=== PATIENT | female | born 1955 | race Hispanic/Latino ===

== ENCOUNTER 2017-06-23 05:59 | Emergency (ER) | payer MEDICARE ==
[2017-06-23] MEDS ORDERED: Ondansetron HCl/PF 4 MG/2 ML Vial ONE (06:34)
[2017-06-23 06:46] LABS: Hemoglobin 12.9 g/dL (12.0-16.0); Mean Corpuscular HGB CONC 34.7 g/dL (32.0-36.0); Mean Corpuscular Hemoglobin 31.2 pg (27.0-31.0); Mean Corpuscular Volume 89.9 fl (81.0-99.0); Mean Platelet Volume 8.2 fL (7.4-10.4); Platelet Count 214 thou/uL (130-400); RBC Distribution Width 14.2 % (11.5-14.5); Red Blood Cell (RBC) Count 4.13 mill/uL (4.20-5.40); White Blood Cell (WBC) Count 6.1 thou/uL (4.8-10.8)
[2017-06-23 07:06] LABS: ALT (SGPT) 28 U/L (8-55); AST (SGOT) 29 U/L (5-34); Albumin 4.1 g/dL (3.4-4.8); Alkaline Phosphatase 86 U/L (40-150); Anion Gap 12 mmol/L (10-20); BUN (Urea Nitrogen) 10 mg/dL (9.8-20.1); Bilirubin, Total 0.4 mg/dL (0.2-1.2); Calc. Creatinine Clearance 0 mL/min (70-130); Calcium 9.3 mg/dL (7.8-10.44); Carbon Dioxide 19 mmol/L (23-31); Chloride 111 mmol/L (98-107); Estimated GFR-MDRD 74; Glucose 120 mg/dL (80-115); Protein, Total 8.1 g/dL (6.0-8.3); Sodium 138 mmol/L (136-145)
[2017-06-23 07:08] LABS: Band 7 % (5-11); Eosinophils 1 % (0-10); Lymphocytes 52 % (21-51); MDiff Complete? YES; Monocytes 4 % (0-10); Neutrophil 34 % (42-75); RBC Morphology Normal; Reactive Lymphocytes 1 % (0-10)
[2017-06-23 07:42] LABS: Bilirubin Small (Negative); Blood, Urine Trace (Negative); Clarity CLOUDY (Clear); Glucose, Urine (Dipstick) Negative (Negative); Leukocyte Negative (Negative); Nitrite Negative (Negative); Protein, Urine (Dipstick) 100 mg/dL (Neg-Trace); Specific Gravity, Urine 1.025 (1.002-1.036); pH, Urine 5.5 (5.0-9.0)
[2017-06-23 07:45] LABS: Bacteria/HPF 1+ HPF (None Seen); Pathc Cast-AUWi Flag 2.16 (0-2.49); WBC/HPF 0-3 HPF (0-3)
[2017-06-23] MEDS ORDERED: Famotidine/PF 20 mg/2ml Vial ONE (07:50)
[2017-06-23 07:54] LABS: RBC/HPF 0-3 HPF (0-3)
[2017-06-23 07:55] LABS: Crystals/HPF 2+ CA OXALATE HPF (Negative); Hyaline Casts/LPF 0-3 HYALINE CAST LPF (0-3 Hyaline)
== END 2017-06-23 08:22 | disposition home or self-care (01) ==
LOC: ERS 05:59
DX: R11.2 Nausea with vomiting, unspecified (principal); R19.7 Diarrhea, unspecified; R22.2 Localized swelling, mass and lump, trunk; F41.9 Anxiety disorder, unspecified; F32.9 Major depressive disorder, single episode, unspecified; Z79.899 Other long term (current) drug therapy
CPT/HCPCS: 36415; 80053; 81003; 81015; 83605; 83690; 85025; 93005; 96361; 96374; 96375; J2405; S0028

== ENCOUNTER 2017-06-30 08:54 | Outpatient (CLI) | payer MEDICARE | END 2017-06-30 08:55 | disposition home or self-care (01) | LOC: BICRAD 08:54 | PROVIDERS: ATTEND Family Medicine | DX: R11.10 Vomiting, unspecified (principal); R16.0 Hepatomegaly, not elsewhere classified | CPT/HCPCS: 71046; 74018 ==

== ENCOUNTER 2017-07-01 08:06 | Outpatient (CLI) | payer MEDICARE | END 2017-07-01 08:07 | disposition home or self-care (01) | LOC: BICULT 08:06 | PROVIDERS: ATTEND Family Medicine | DX: R10.9 Unspecified abdominal pain (principal); R11.10 Vomiting, unspecified; R16.0 Hepatomegaly, not elsewhere classified | CPT/HCPCS: 76700 ==

== ENCOUNTER 2018-03-12 11:48 | Outpatient (CLI) | payer MEDICARE ==
--- NOTE | 2018-03-12 16:14 | ULT ---
THYROID ULTRASOUND: Date: 03/12/18 COMPARISON: None. HISTORY: Thyromegaly. TECHNIQUE: Multiplanar King scale sonographic imaging of the thyroid gland is obtained. FINDINGS: The thyroid gland is diffusely enlarged and hyperemic, and contains numerous solid nodules. The thyro id isthmus measures 1.0 cm in AP dimension. The right lobe measures 6.0 x 2.7 x 2.3 cm. The left lobe measures 6.0 x 3.2 x 2.5 cm. Diffusely, the thyroid parenchyma is markedly heterogeneous. Numerous s olid nodules seen throughout the left lobe measure up to 2.0 x 1.8 x 1.8 cm. Numerous solid nodules t hroughout the right lobe measure up to approximately 1.7 x 1.3 x 1.5 cm. IMPRESSION: The thyroid gland is diffusely enlarged and contains numerous solid nodules as detailed above. Findin gs most consistent with a multinodular goiter. There is no discrete dominant thyroid nodule seen on e ither side. Follow up in 1 yr suggested. POS: [facility]
== END 2018-03-12 11:49 | disposition home or self-care (01) ==
LOC: BICULT 11:48
PROVIDERS: ATTEND Surgery
DX: E01.0 Iodine-deficiency related diffuse (endemic) goiter (principal); E04.9 Nontoxic goiter, unspecified; E04.2 Nontoxic multinodular goiter
CPT/HCPCS: 36415; 76536; 86593; 86780; 87389

== ENCOUNTER 2018-03-13 13:16 | Outpatient (CLI) | payer MEDICARE | END 2018-03-13 13:17 | disposition home or self-care (01) | LOC: BICMAMMO 13:16 | PROVIDERS: ATTEND Family Medicine | DX: Z12.31 Encounter for screening mammogram for malignant neoplasm of breast (principal); N63.20 Unspecified lump in the left breast, unspecified quadrant; Z85.6 Personal history of leukemia | CPT/HCPCS: 77063; 77067 ==

== ENCOUNTER 2018-03-18 09:52 | Outpatient (CLI) | payer MEDICARE ==
--- NOTE | 2018-03-18 11:58 | ULT ---
LEFT BREAST ULTRASOUND: History: Two breast masses demonstrated on recent mammogram study. Comparison: 03-18-18 FINDINGS: Real-time imaging of the left breast was performed. At the 2 o'clock position, approximately 3 cm fro m the nipple, there is a cystic appearing area measuring approximately 8 mm in size. Directly adjacen t to this and possibly connected is a more complex cystic appearing lesion measuring 4 mm in size. On doppler evaluation it shows no evidence of any flow and does appear to probably have a connection to the larger cystic structure and is probably a nipple-like out projection from that cystic area. At the 3 o'clock position 6 cm from the nipple is a second anechoic structure measuring 9 mm in maxim um size which has features of a benign cyst. IMPRESSION: BIRADS category 3 - probably benign findings. I would recommend a six month follow up ultrasound to e valuate the more complex appearing cystic breast lesion seen at the 2 o'clock position 3 cm from the nipple. This was discussed with the patient. POS: OFF
== END 2018-03-18 09:53 | disposition home or self-care (01) ==
LOC: BICMAMMO 09:52
PROVIDERS: ATTEND Family Medicine
DX: N63.20 Unspecified lump in the left breast, unspecified quadrant (principal); Z85.6 Personal history of leukemia
CPT/HCPCS: 76642; 77065; G0279

== ENCOUNTER 2018-05-01 19:05 | Observation (INO) | payer MEDICARE ==
[2018-05-01] MEDS ORDERED: Nitroglycerin 2% Ointment 1 INCH/1 GM Packet ONE (19:32)
[2018-05-01 19:39] LABS: Hemoglobin 11.8 g/dL (12.0-16.0); Mean Corpuscular HGB CONC 34.7 g/dL (32.0-36.0); Mean Corpuscular Hemoglobin 30.7 pg (27.0-31.0); Mean Corpuscular Volume 88.3 fL (78.0-98.0); Mean Platelet Volume 7.7 fL (7.4-10.4); Platelet Count 217 thou/uL (130-400); RBC Distribution Width 14.3 % (11.5-14.5); Red Blood Cell (RBC) Count 3.84 mill/uL (4.20-5.40); White Blood Cell (WBC) Count 7.1 thou/uL (4.8-10.8)
--- NOTE | 2018-05-01 19:55 | RAD ---
PORTABLE CHEST: 05/01/18 HISTORY: Chest pain. Lung hart are clear. Heart and mediastinum appear normal. Vasculature is normal. IMPRESSION: No acute findings. POS: [facility]
[2018-05-01 19:57] LABS: ALT (SGPT) 15 U/L (8-55); AST (SGOT) 24 U/L (5-34); Alkaline Phosphatase 86 U/L (40-150); Anion Gap 13 mmol/L (10-20); BUN (Urea Nitrogen) 9 mg/dL (9.8-20.1); Bilirubin, Total 0.4 mg/dL (0.2-1.2); CK (CPK) 324 U/L (29-168); Calc. Creatinine Clearance 0 mL/min (70-130); Calcium 9.2 mg/dL (7.8-10.44); Carbon Dioxide 26 mmol/L (23-31); Chloride 105 mmol/L (98-107); Estimated GFR-MDRD 57; Globulin 3.9 g/dL (2.4-3.5); Glucose 158 mg/dL (80-115); Potassium 3.7 mmol/L (3.5-5.1); Protein, Total 7.9 g/dL (6.0-8.3); Sodium 140 mmol/L (136-145)
[2018-05-01 19:59] LABS: Band 4 % (5-11); Eosinophils 1 % (0-10); Lymphocytes 48 % (21-51); MDiff Complete? YES; Monocytes 4 % (0-10); Neutrophil 41 % (42-75); PLT Morphology Comment Appears Adequate; Polychromasia SLIGHT = 2-3 cells (100X) (0-2/hpf); Reactive Lymphocytes 1 % (0-10)
[2018-05-01] MEDS ORDERED: Nitroglycerin 0.4 MG TAB (25 Tab Bottle) PO PRN (20:27)
[2018-05-01] MEDS ORDERED: Bisacodyl 5 MG TAB PO PRN (20:30)
[2018-05-01] MEDS ORDERED: Ondansetron PF 4 MG/2 ML Vial IVP PRN (20:30)
[2018-05-01] MEDS ORDERED: Zolpidem Tartrate 5 MG TAB PO PRN (20:30)
[2018-05-01] MEDS ORDERED: Acetaminophen 325 MG TAB PO PRN (20:30)
[2018-05-01] MEDS ORDERED: Senokot S 8.6-50 MG TAB PO PRN (20:30)
[2018-05-01] MEDS ORDERED: Calcium Carbonate 500 MG ChewTAB PO PRN (20:30)
[2018-05-01] MEDS ORDERED: Ondansetron ODT 4 MG TAB PO PRN (20:30)
[2018-05-01] MEDS ORDERED: Guaifenesin DM 100-10/5 ML UDCUP PO PRN (20:30)
[2018-05-01 22:00] VITALS: BMI 36.3
[2018-05-01 22:46] LABS: Troponin I Less than 0.010 ng/mL (< 0.028)
[2018-05-01] MEDS: Famotidine 20 MG TAB PO SCH (22:53)
[2018-05-01] MEDS: Famotidine/PF 20 mg/2ml Vial SLOW IVP SCH (22:53)
[2018-05-01] MEDS: Nitroglycerin 2% Ointment 1 INCH/1 GM Packet TOP SCH (22:54)
[2018-05-02 01:57] LABS: Troponin I Less than 0.010 ng/mL (< 0.028)
[2018-05-02] MEDS: Nitroglycerin 2% Ointment 1 INCH/1 GM Packet TOP SCH ×2 (05:10→14:20)
[2018-05-02 06:31] LABS: #Eosinphils 0.1 thou/uL (0.0-0.7); #Monocytes 0.3 thou/uL (0.11-0.59); #Neutrophils 1.7 thou/uL (1.40-6.50); %Basophils 0.9 % (0.0-1.0); %Eosinophils 1.8 % (0.0-10.0); %Lymphocytes 48.5 % (21.0-51.0); %Monocytes 6.8 % (0.0-10.0); %Neutrophils 41.9 % (42.0-75.0); Hemoglobin 10.5 g/dL (12.0-16.0); Mean Corpuscular Hemoglobin 30.3 pg (27.0-31.0); Mean Corpuscular Volume 89.1 fL (78.0-98.0); Mean Platelet Volume 7.8 fL (7.4-10.4); Platelet Count 187 thou/uL (130-400); RBC Distribution Width 14.3 % (11.5-14.5); Red Blood Cell (RBC) Count 3.46 mill/uL (4.20-5.40); White Blood Cell (WBC) Count 4.2 thou/uL (4.8-10.8)
[2018-05-02 06:42] LABS: Anion Gap 11 mmol/L (10-20); BUN (Urea Nitrogen) 10 mg/dL (9.8-20.1); Calc. Creatinine Clearance 87 mL/min (70-130); Calcium 8.9 mg/dL (7.8-10.44); Carbon Dioxide 26 mmol/L (23-31); Cardiac Risk 4.3 (Less than 4.5); Chloride 108 mmol/L (98-107); Cholesterol 143 mg/dl (< 200 Desired); Estimated GFR-MDRD 68; Glucose 115 mg/dL (80-115); HDL Cholesterol 33 mg/dL (>60 Neg Risk); LDL Cholesterol, Calculated 78 mg/dL; Potassium 4.2 mmol/L (3.5-5.1); Sodium 141 mmol/L (136-145); Triglycerides 158 mg/dL (Less than 150)
[2018-05-02] MEDS: Famotidine 20 MG TAB PO SCH ×2 (08:39→14:21)
[2018-05-02] MEDS: Enoxaparin Sodium 40 MG/0.4 ML SYRINGE SC SCH ×2 (08:39→12:47)
[2018-05-02] MEDS: Famotidine/PF 20 mg/2ml Vial SLOW IVP SCH (08:39)
[2018-05-02] MEDS ORDERED: Aspirin 325 MG TAB PO SCH (09:00)
[2018-05-02] MEDS ORDERED: Prevnar 13-Val Conj/PF 0.5 ML SYRINGE IM ONE (09:00)
--- NOTE | 2018-05-02 11:49 | NM ---
NUCLEAR MEDICINE CARDIAC MYOCARDIAL PERFUSION SPECT EJECTION FRACTION STUDY WALL MOTION CINE: DATE: 05/02/18 HISTORY: 62-year-old female with hypertension, dyslipidemia, and family history of coronary artery disease, pr esents with chest pain. TECHNIQUE: Number of days: 1 Rest study: Tc99m sestamibi (Cardiolite) dose: 10.5 mCi Exercise stress: treadmill. Stress study: Tc99m sestamibi (Cardiolite) dose: 28.3 mCi FINDINGS: CARDIAC (MYOCARDIAL PERFUSION) SPECT Distribution of sestamibi is homogeneous throughout the left ventricle, with no fixed or reversible m yocardial perfusion defects. EJECTION FRACTION STUDY EF = 77% WALL MOTION CINE The left ventricular wall motion is normal. There is normal systolic wall thickening. IMPRESSION: Normal. yaquelin[] POS: [facility]
--- NOTE | 2018-05-02 13:09 | CT ---
CTA CHEST WITH CONTRAST: Date: 05/02/18 COMPARISON: 02/03/13. HISTORY: Elevated D-Dimer. Chest pain. TECHNIQUE: Multiple contiguous axial images were obtained in a CTA of the chest with contrast per pulmonary embo lism protocol. 3D oblique MIP reformats and direct coronal reformats were performed. FINDINGS: The pulmonary arteries are well opacified and without filling defects to suggest pulmonary emboli. Th e heart is normal in size. No shift of the intraventricular septum is seen. No hilar or mediastinal l ymphadenopathy seen. No pneumothorax or pleural effusion seen. No focal infiltrates are seen in the lungs. No suspicious p ulmonary nodules are identified. Mild degenerative changes are seen in the spine. The visualized subdiaphragmatic structures are unrem arkable. The patient is status post cholecystectomy. The chest wall soft tissues are unremarkable. IMPRESSION: No evidence of pulmonary thromboembolism. POS: [facility]
[2018-05-02] MEDS ORDERED: Atorvastatin Calcium 10 MG TAB PO SCH (14:15)
[2018-05-02] MEDS ORDERED: DASATINIB PO SCH (14:15)
[2018-05-02] MEDS ORDERED: Hydrochlorothiazide 25 MG TAB PO SCH (14:15)
[2018-05-02 15:52] VITALS: BP 114/58; TEMP 98.3
--- NOTE | 2018-05-02 21:31 | HP ---
CHIEF COMPLAINT: Chest pain. HISTORY OF PRESENT ILLNESS: This is a 62-year-old female with past medical history significant of valvular heart disease; malignancy; chronic myelogenous leukemia, in remission; presenting with chest pain, which was tightness in nature and was radiating to the right arm, 8/10. Per the patient, she was lying down around 5:00 a.m. prior to the day of admission when she started having this chest discomfort. Per the patient in the past when she had something similar like this, she was diagnosed with heart murmurs. The patient stated that she did not do anything to relieve the pain rather she thought that she was having possible VA. Therefore, she came into the hospital to be evaluated. The patient endorses diarrhea, nausea, vomiting, and diaphoresis. Of note, in 2013, the patient had an echo done, which showed left ventricular ejection fraction of 55%. REVIEW OF SYSTEMS: Positive for chest pain, diarrhea, nausea, vomiting, otherwise as documented in the HPI. All other systems were reviewed and are negative. PAST MEDICAL HISTORY: CAD, MVP, malignancy, chronic myelogenous leukemia. SURGICAL HISTORY: Appendectomy, cholecystectomy, tubal ligation. FAMILY HISTORY: Reviewed and noncontributory to this visit. PSYCH HISTORY: Anxiety and depression. SOCIAL HISTORY: The patient denies any alcohol use. Denies any illicit drug use and denies any smoking history. ALLERGIES: NO KNOWN DRUG ALLERGIES. CURRENT MEDICATIONS: The patient takes: 1. Hydrochlorothiazide 12.5 mg. 2. Atorvastatin 10 mg. 3. Sprycel 80 mg. PHYSICAL EXAMINATION: VITAL SIGNS: The patient's blood pressure is 114/59, pulse of 52, respiratory rate of 17, temperature of 98.3, and oxygen saturation of 97%. GENERAL: The patient is lying in bed, obese, does not appear to be in any acute distress. The patient is speaking in full sentences. HEENT: Normocephalic, atraumatic. Pupils are equally round and reactive to light. Extraocular movements are intact. No scleral icterus. No conjunctival pallor. Mucous membranes are moist. NECK: Trachea is midline. Full range of motion. No JVD. Thyroid is normal. No meningeal signs. LUNGS: Clear to auscultation bilaterally. No wheezing, no rales, no rhonchi appreciated. CARDIAC: Positive S1, S2. Regular rate and rhythm. No murmurs, no gallops, no rubs appreciated. ABDOMEN: Obese abdomen, soft, nontender, and nondistended. Positive bowel sounds in all quadrants. No palpable masses. EXTREMITIES: The patient has 5/5 upper extremity strength and 5/5 lower extremity strength with good pulses bilaterally at the upper and lower extremities. No edema noted. NEUROLOGIC: Cranial nerves II through XII grossly intact. No neurologic deficits noted. SKIN: Warm, dry, and intact. No rashes. PSYCHIATRIC: Normal affect. DIAGNOSTIC DATA: 12-lead EKG shows normal sinus rhythm with a rate of 72, left ventricular hypertrophy. Chest x-ray shows no acute cardiopulmonary process. LABORATORY DATA: WBC 7.1, hemoglobin 11.8, hematocrit 33.9, platelet count 217. Sodium is 140, potassium is 3.7, chloride is 105, carbon dioxide of 26, anion gap of 13, BUN is 9, creatinine 0.99, glucose 158. AST is 24, ALT is 15. Creatine kinase is 324. Troponins are negative at 0.010 x3. TSH is 5.5007. ASSESSMENT AND PLAN: 1. This is a 62-year-old female, being admitted for chest pain, rule out acute coronary syndrome. At this point, the patient's troponins has been negative. We have ordered for stress test. We will follow up on stress test. We will continue the patient on atorvastatin and aspirin. We will continue to monitor the patient. 2. Multinodular thyroid. The patient stated that her thyroids are stable and she had an ultrasound done recently. 3. Mitral valve prolapse. The patient stated that she has not had any difficulties or any problems with her heart recently. At this point, we will get an echo and stress test. We will get Cardiology on consult. 4. Diarrhea. The patient has not had any recent diarrhea at this time. We will monitor the patient closely. 5. Deep venous thrombosis and gastrointestinal prophylaxis. Job ID: [id number]
--- NOTE | 2018-05-03 03:06 | DIS ---
DATE OF ADMISSION: 05/01/2018 DATE OF DISCHARGE: 05/02/2018 PRIMARY CARE PHYSICIAN: Yolanda Beauchamp MD. PRIMARY NUCLEAR EQUIPMENT SALES ENGINEER: Dr. Maldonado. CONDITION: At the time of discharge, stable. DISCHARGE DIAGNOSES: 1. Chest pain. 2. History of mitral valve prolapse. 3. History of chronic myelogenous leukemia, in remission. IN-HOUSE CONSULTATION: Cardiology, Dr. Martino. PROCEDURES DONE IN THE HOSPITAL: Nuclear medicine stress test which is negative for any evidence of reversible or fixed defect. EF estimated 77%. CT angio of the chest, which is negative for any pulmonary embolism. HISTORY OF PRESENTING ILLNESS: Ms. Edouard is a 62-year-old female with past medical history as mentioned above, who presented to the ER with complaints of chest pain. Please note that no H and P is available for me to review at this time. According to the ER notes, her chest pain was sudden onset in duration. It was not associated with any shortness of breath etc. Please see the H and P when dictated for full details. HOSPITAL COURSE: The patient was admitted to telemetry unit for ACS rule out, and stress test was ordered. Dr. Martino from Cardiology was consulted. She was started on aspirin and transdermal nitroglycerin. Her workup was essentially unremarkable including the nuclear medicine stress test. Her D-dimer was found to be elevated at 1.26, for which she underwent a CT angio which was negative for PE. By the time of discharge, she was seen by Dr. Martino and has been cleared for discharge. She will follow up with Dr. Maldonado in the outpatient setting with regard to her history of mitral valve prolapse. I have seen and examined the patient prior to discharge and currently she is symptom-free. Discharge plan was discussed with the patient. She verbalized understanding. PHYSICAL EXAMINATION: VITAL SIGNS: This morning vital signs, temperature 98.3, pulse of 57, respirations 15, saturating 96% on room air, blood pressure 114/58. GENERAL: No acute distress. CHEST: Clear to auscultation bilaterally. CARDIAC: Rate and rhythm are regular. LABORATORY DATA: Serial troponin less than 0.010 x3. Cholesterol panel shows triglycerides high at 158, otherwise unremarkable. CBC, serum chemistries unremarkable. She will follow up with primary care physician in 1 to [address] Maldonado in 2 to 3 weeks. Job ID: [id number]
[2018-05-03] MEDS ORDERED: Non-Formulary Item 1 EACH (Hydrochlorothiazide [Hydrochlorothiazide] 12.5 MG) PO SCH (09:00)
[2018-05-03] MEDS ORDERED: DASATINIB PO SCH ×3 (09:00)
[2018-05-03] MEDS ORDERED: Hydrochlorothiazide 25 MG TAB PO SCH (09:00)
[2018-05-03] MEDS ORDERED: Atorvastatin Calcium 10 MG TAB PO SCH (09:00)
--- NOTE | 2018-05-04 11:45 | CON ---
DATE OF CONSULTATION: HISTORY OF PRESENT ILLNESS: The patient is a 62-year-old woman who presents with left-sided chest discomfort and dyspnea. The patient has a previous history of valvular heart disease. The patient states in 2009, she underwent a stress test. She had presented with chest pain. She underwent the stress test that was unremarkable. She also has a history of CML. The patient had been followed by for apparent aortic stenosis. She was in her usual state of health when yesterday she had some diarrhea and felt weak. She laid down and developed midsternal chest discomfort that was radiated down to left arm. She became marked diaphoretic. This chest discomfort lasted for approximately an hour and subsequently resolved. The patient denied having any previous chest discomfort. The patient denies having any PND or orthopnea. PAST MEDICAL HISTORY: 1. CML. 2. Hypertension. 3. Hypercholesterolemia. 4. Dyslipidemia. PAST SURGICAL HISTORY: Appendectomy, cholecystectomy, tubal ligation, and shoulder surgery. SOCIAL HISTORY: Nonsmoker. MEDICATIONS: 1. Aspirin 81 mg daily. 2. Sprycel 80 daily. 3. Lipitor 10 at bedtime. 4. Hydrochlorothiazide 12.5 daily. ALLERGIES: NO KNOWN DRUG ALLERGIES. REVIEW OF SYSTEMS: Ten-point systems otherwise unremarkable. PHYSICAL EXAMINATION: GENERAL: Obese woman, in no acute distress. VITAL SIGNS: Blood pressure is 111/52. NECK: No jugular venous distention. LUNGS: Clear to auscultation. HEART: Regular rate and rhythm. Normal S1 and S2 with a 2/6 systolic murmur. ABDOMEN: Nondistended. EXTREMITIES: Showed no edema. VASCULAR: Radial pulses are 2+. LABORATORY DATA: White blood cell count is 4.2, hemoglobin 10.5, hematocrit 30.9, and her platelets are 187. Sodium is 141, potassium 4.2, chloride 108, bicarbonate 26, BUN 10, and creatinine is 0.85. Troponin less than 0.01. IMAGING STUDIES: EKG revealed her to have normal sinus rhythm with mild voltage criteria for left ventricular hypertrophy. IMPRESSION: 1. Chest pain. 2. Dyspnea. 3. Hypertension. 4. Aortic stenosis. 5. Dyslipidemia. This patient presented with chest pain and dyspnea. Her EKG showed no acute changes. Her cardiac enzymes were unremarkable. The patient today underwent a stress test to evaluate for ischemia. The patient also needs to be evaluated for possible pulmonary embolus. We will check a D-dimer and if elevated, we will then proceed with testing for pulmonary embolus. We will follow this patient with you through her hospitalization. Job ID: [id number] [facility]
--- NOTE | 2018-05-05 12:42 | EKG ---
Test Reason : Blood Pressure : / mmHG Vent. Rate : 072 BPM Atrial Rate : 072 BPM P-R Int : 144 ms QRS Dur : 078 ms QT Int : 396 ms P-R-T Axes : 033 -02 024 degrees QTc Int : 433 ms Normal sinus rhythm Minimal voltage criteria for LVH, may be normal variant Borderline ECG Confirmed by GATO SHEPHERD, MIKAYLA Dockery ([id number]), art editor ROSA ELENA DIAZ ([id number]) on 05/05/2018 12:41:21 PM Referred By: Confirmed By:MIKAYLA HOSKINS MD
== END 2018-05-02 16:57 | disposition home or self-care (01) ==
LOC: ERS 19:05 → 2SW 21:28
PROVIDERS: ADMIT Internal Medicine; ATTEND Internal Medicine
DX: R07.9 Chest pain, unspecified (principal); C92.11 Chronic myeloid leukemia, BCR/ABL-positive, in remission; I34.1 Nonrheumatic mitral (valve) prolapse; I25.10 Atherosclerotic heart disease of native coronary artery without angina pectoris; E04.2 Nontoxic multinodular goiter; E78.00 Pure hypercholesterolemia, unspecified; F41.9 Anxiety disorder, unspecified; F32.9 Major depressive disorder, single episode, unspecified; Z90.49 Acquired absence of other specified parts of digestive tract; Z98.51 Tubal ligation status; Z79.82 Long term (current) use of aspirin; Z79.899 Other long term (current) drug therapy; Z98.890 Other specified postprocedural states
CPT/HCPCS: 71045; 71275; 78452; 80048; 80061; 82550; 84484 ×3; 85025; 85379; 93005; 93017; 94760 ×2; 99285; A9500; G0378 ×3; 36415; 80053; 84443; J1650

== ENCOUNTER 2018-07-26 14:12 | Emergency (ER) | payer MEDICARE ==
[2018-07-26 16:09] LABS: Hemoglobin 11.2 g/dL (12.0-16.0); Mean Corpuscular HGB CONC 32.1 g/dL (32.0-36.0); Mean Corpuscular Hemoglobin 29.3 pg (27.0-31.0); Mean Corpuscular Volume 91.2 fL (78.0-98.0); Mean Platelet Volume 7.9 fL (7.4-10.4); Platelet Count 224 thou/uL (130-400); RBC Distribution Width 14.5 % (11.5-14.5); Red Blood Cell (RBC) Count 3.84 mill/uL (4.20-5.40)
[2018-07-26 16:10] LABS: Bilirubin Negative (Negative); Blood, Urine Negative (Negative); Clarity CLOUDY (Clear); Glucose, Urine (Dipstick) Negative (Negative); Leukocyte Moderate (Negative); Nitrite Negative (Negative); Protein, Urine (Dipstick) Negative (Neg-Trace); Specific Gravity, Urine 1.008 (1.002-1.036)
[2018-07-26 16:13] LABS: Bacteria/HPF 1+ HPF (None Seen); Hyaline Casts/LPF 0-3 HYALINE CAST LPF (0-3 Hyaline); Pathc Cast-AUWi Flag 0.27 (0-2.49); RBC/HPF 0-3 HPF (0-3); Squamous Epithelial 0-3 HPF (0-3); WBC/HPF 21-50 HPF (0-3)
[2018-07-26 16:23] LABS: Band 1 % (5-11); Lymphocytes 68 % (21-51); MDiff Complete? YES; Monocytes 4 % (0-10); Neutrophil 23 % (42-75); Ovalocytes SLIGHT = 2-5 cells (100X) (0-1/hpf); Platelet Morphology Comment Appears Adequate; Polychromasia SLIGHT = 2-3 cells (100X) (0-2/hpf); Reactive Lymphocytes 3 % (0-10)
[2018-07-26 16:27] LABS: ALT (SGPT) 17 U/L (8-55); AST (SGOT) 23 U/L (5-34); Albumin 3.7 g/dL (3.4-4.8); Alkaline Phosphatase 79 U/L (40-150); Anion Gap 12 mmol/L (10-20); BUN (Urea Nitrogen) 8 mg/dL (9.8-20.1); Bilirubin, Total 0.2 mg/dL (0.2-1.2); Calc. Creatinine Clearance 0 mL/min (70-130); Carbon Dioxide 24 mmol/L (23-31); Chloride 110 mmol/L (98-107); Estimated GFR-MDRD 72; Globulin 3.7 g/dL (2.4-3.5); Glucose 113 mg/dL (80-115); Lipase 26 U/L (8-78); Potassium 4.5 mmol/L (3.5-5.1); Protein, Total 7.4 g/dL (6.0-8.3); Sodium 141 mmol/L (136-145)
== END 2018-07-26 18:34 | disposition home or self-care (01) ==
LOC: ERS 14:12
DX: K64.4 Residual hemorrhoidal skin tags (principal); I38 Endocarditis, valve unspecified; F41.9 Anxiety disorder, unspecified; F32.9 Major depressive disorder, single episode, unspecified
CPT/HCPCS: 36415; 80053; 81003; 81015; 83690; 85025; 99283

== ENCOUNTER 2020-08-08 10:16 | Outpatient (CLI) | payer MEDICARE ==
[2020-08-08 19:00] LABS: SARS-CoV-2 PCR by NAA Not Detected (NotDetected)
== END 2020-08-08 10:17 | disposition home or self-care (01) ==
LOC: LABBT 10:16
PROVIDERS: ATTEND Internal Medicine Gastroenterology
DX: Z01.812 Encounter for preprocedural laboratory examination (principal); Z12.11 Encounter for screening for malignant neoplasm of colon; Z20.822 Contact with and (suspected) exposure to COVID-19
CPT/HCPCS: U0003; U0005; 87635

== ENCOUNTER 2020-08-11 06:49 | Day surgery (SDC) | payer MEDICARE ==
[2020-08-10 08:04] VITALS: BMI 35.1
[2020-08-11] MEDS ORDERED: Lidocaine 1% PF 5 ML VIAL ONE (09:08)
[2020-08-11] MEDS ORDERED: PROPOFOL 200 MG/20 ML VIAL ONE (09:08)
== END 2020-08-11 11:27 | disposition home or self-care (01) ==
LOC: SDC 06:49
PROVIDERS: ATTEND Internal Medicine Gastroenterology
PROC: 0DBM8ZX Excision of Descending Colon, Via Natural or Artificial Opening Endoscopic, Diagnostic (ICD-10-PCS; principal; 2020-08-11)
PROC: 0DBL8ZX Excision of Transverse Colon, Via Natural or Artificial Opening Endoscopic, Diagnostic (ICD-10-PCS; 2020-08-11)
PROC: 0DBN8ZX Excision of Sigmoid Colon, Via Natural or Artificial Opening Endoscopic, Diagnostic (ICD-10-PCS; 2020-08-11)
DX: D12.3 Benign neoplasm of transverse colon (principal); D12.4 Benign neoplasm of descending colon; D12.5 Benign neoplasm of sigmoid colon; K51.40 Inflammatory polyps of colon without complications; K57.30 Diverticulosis of large intestine without perforation or abscess without bleeding; K64.9 Unspecified hemorrhoids; E03.9 Hypothyroidism, unspecified; E78.5 Hyperlipidemia, unspecified; I10 Essential (primary) hypertension; E66.9 Obesity, unspecified; Z68.35 Body mass index [BMI] 35.0-35.9, adult; Z79.82 Long term (current) use of aspirin; Z79.899 Other long term (current) drug therapy
CPT/HCPCS: 88305; J2704

== ENCOUNTER 2020-10-10 14:36 | Outpatient (CLI) | payer MEDICARE | END 2020-10-10 14:37 | disposition home or self-care (01) | LOC: BICRAD 14:36 | PROVIDERS: ATTEND Family Medicine | DX: M53.3 Sacrococcygeal disorders, not elsewhere classified (principal); M47.816 Spondylosis without myelopathy or radiculopathy, lumbar region | CPT/HCPCS: 72100 ==

== ENCOUNTER 2020-11-03 06:02 | Day surgery (SDC) | payer MEDICARE ==
[2020-11-02 12:38] VITALS: BMI 34.7
[2020-11-03] MEDS ORDERED: PROPOFOL 200 MG/20 ML VIAL ONE (08:09)
== END 2020-11-03 09:50 | disposition home or self-care (01) ==
LOC: SDC 06:02
PROVIDERS: ATTEND Internal Medicine Gastroenterology
PROC: 0DB78ZX Excision of Stomach, Pylorus, Via Natural or Artificial Opening Endoscopic, Diagnostic (ICD-10-PCS; principal; 2020-11-03)
DX: K31.7 Polyp of stomach and duodenum (principal); K29.50 Unspecified chronic gastritis without bleeding; K31.89 Other diseases of stomach and duodenum; E03.9 Hypothyroidism, unspecified; E78.5 Hyperlipidemia, unspecified; C92.10 Chronic myeloid leukemia, BCR/ABL-positive, not having achieved remission; I10 Essential (primary) hypertension; Z79.82 Long term (current) use of aspirin; Z79.899 Other long term (current) drug therapy
CPT/HCPCS: 88305; 88312; J2704

== ENCOUNTER 2021-03-23 12:10 | Outpatient (CLI) | payer MEDICARE | END 2021-03-23 12:11 | disposition home or self-care (01) | LOC: BICULT 12:10 | PROVIDERS: ATTEND Family Medicine | DX: E04.2 Nontoxic multinodular goiter (principal) | CPT/HCPCS: 76536 ==

== ENCOUNTER 2021-09-14 08:00 | Outpatient (CLI) | payer MEDICARE | END 2021-09-14 08:01 | disposition home or self-care (01) | LOC: PET 08:00 | PROVIDERS: ATTEND Internal Medicine Hematology & Oncology | DX: C20 Malignant neoplasm of rectum (principal); C21.1 Malignant neoplasm of anal canal | CPT/HCPCS: 78815; A9552 ==

== ENCOUNTER 2021-10-10 22:07 | Emergency (ER) | payer MEDICARE | END 2021-10-11 01:03 | disposition home or self-care (01) | LOC: ERS 22:07 | DX: T82.9XXA Unspecified complication of cardiac and vascular prosthetic device, implant and graft, initial encounter (principal) | CPT/HCPCS: 96374; J1642 ==

== ENCOUNTER 2021-11-06 07:53 | Day surgery (SDC) | payer MEDICARE ==
[2021-11-06] MEDS ORDERED: diphenhydrAMINE 25 MG CAP ONE (08:19)
[2021-11-06] MEDS ORDERED: Acetaminophen 500 MG TAB ONE (08:19)
[2021-11-06 14:10] VITALS: TEMP 98.3
[2021-11-06 14:12] VITALS: BP 130/63
== END 2021-11-06 14:13 | disposition home or self-care (01) ==
LOC: ONC/OP 07:53
PROVIDERS: ATTEND Internal Medicine Hematology & Oncology
PROC: 30233N1 Transfusion of Nonautologous Red Blood Cells into Peripheral Vein, Percutaneous Approach (ICD-10-PCS; principal; 2021-11-06)
DX: D64.9 Anemia, unspecified (principal); D69.6 Thrombocytopenia, unspecified
CPT/HCPCS: 36430; 86850; 86900; 86901; J1642; P9016

== ENCOUNTER 2021-12-11 08:56 | Day surgery (SDC) | payer MEDICARE ==
[2021-12-11] MEDS ORDERED: Acetaminophen 500 MG TAB ONE (09:14)
[2021-12-11] MEDS ORDERED: diphenhydrAMINE 25 MG CAP ONE (09:14)
[2021-12-11 12:07] VITALS: TEMP 98.3
[2021-12-11 12:08] VITALS: BP 166/73
== END 2021-12-11 12:09 | disposition home or self-care (01) ==
LOC: ONC/OP 08:56
PROVIDERS: ATTEND Internal Medicine Hematology & Oncology
PROC: 30233N1 Transfusion of Nonautologous Red Blood Cells into Peripheral Vein, Percutaneous Approach (ICD-10-PCS; principal; 2021-12-11)
DX: D64.9 Anemia, unspecified (principal); D69.6 Thrombocytopenia, unspecified
CPT/HCPCS: 36430; 86850; 86900; 86901; J1642; P9016

== ENCOUNTER 2022-01-22 08:54 | Outpatient (CLI) | payer MEDICARE | END 2022-01-22 08:55 | disposition home or self-care (01) | LOC: PET 08:54 | PROVIDERS: ATTEND Internal Medicine Hematology & Oncology | DX: C21.1 Malignant neoplasm of anal canal (principal); C92.12 Chronic myeloid leukemia, BCR/ABL-positive, in relapse; D50.8 Other iron deficiency anemias | CPT/HCPCS: 78815; A9552 ==

== ENCOUNTER 2022-05-08 11:45 | Outpatient (CLI) | payer MEDICARE | END 2022-05-08 11:46 | LOC: PET 11:45 | PROVIDERS: ATTEND Radiology Radiation Oncology | DX: C21.1 Malignant neoplasm of anal canal (principal); Z98.890 Other specified postprocedural states | CPT/HCPCS: 78815; A9552 ==

== ENCOUNTER 2022-06-27 08:30 | Outpatient (CLI) | payer MEDICARE | END 2022-06-27 08:31 | disposition home or self-care (01) | LOC: BICMAMMO 08:30 | PROVIDERS: ATTEND Family Medicine | DX: Z12.31 Encounter for screening mammogram for malignant neoplasm of breast (principal); Z85.6 Personal history of leukemia; Z80.3 Family history of malignant neoplasm of breast | CPT/HCPCS: 77063; 77067 ==

== ENCOUNTER 2023-07-30 09:25 | Outpatient (CLI) | payer MEDICARE | END 2023-07-30 09:26 | disposition home or self-care (01) | LOC: BICMAMMO 09:25 | PROVIDERS: ATTEND Family Medicine | DX: Z12.31 Encounter for screening mammogram for malignant neoplasm of breast (principal); Z80.3 Family history of malignant neoplasm of breast; Z85.6 Personal history of leukemia | CPT/HCPCS: 77063; 77067 ==

== ENCOUNTER 2024-03-19 07:34 | Outpatient (CLI) | payer MEDICARE ==
[2024-03-19] MEDS ORDERED: Iopamidol 370 76% 100 ML VIAL ONE (14:08)
== END 2024-03-19 07:35 | disposition home or self-care (01) ==
LOC: BICCT 07:34
PROVIDERS: ATTEND Radiology Radiation Oncology
DX: C21.1 Malignant neoplasm of anal canal (principal); K46.9 Unspecified abdominal hernia without obstruction or gangrene; Z93.3 Colostomy status
CPT/HCPCS: 71260; 74177; Q9967